=== PATIENT | male | born 1985 | race Asian ===

== ENCOUNTER 2016-11-17 23:13 | Emergency (ER) | payer MEDICAID ==
[~2016-11-17] VITALS: Ht 121.9 cm; Wt 43.1 kg
[2016-11-17 23:13] VITALS: BP_SYST 141
[2016-11-18] MEDS ORDERED: HYDROcodone/ACETAMIN 5-325 MG TAB (NORCO/ VICODIN) PO ONE
[2016-11-18] MEDS ORDERED: ONDANSETRON 4 MG ODT TAB PO ONE
[2016-11-18 01:34] VITALS: BP_SYST 138
== END 2016-11-18 01:34 | disposition home or self-care (01) ==
LOC: SED 23:13
DX: M25.561 Pain in right knee (principal); Z88.5 Allergy status to narcotic agent; Z91.040 Latex allergy status
CPT/HCPCS: 93971; 99284; Q0162